=== PATIENT | female | born 1960 | race African-American/Black ===

== ENCOUNTER 2021-01-27 19:52 | Emergency (ER) | payer MEDICAID, OTHER ==
[~2021-01-27] VITALS: Ht 162.6 cm; Wt 87.0 kg
[~2021-01-27 19:52] MED LIST: ACYC800T5; HYDR-3512; PHEN32.46
[2021-01-27 19:59] VITALS: BP 122/80
[2021-01-27] MEDS ORDERED: KETOROLAC 60MG/2ML VIAL IM ONE (20:15)
[2021-01-27] MEDS ORDERED: DOCU-138 MT (20:16)
[2021-01-27] MEDS ORDERED: IBUP-2029 MT (20:16)
== END 2021-01-27 21:07 | disposition home or self-care (01) ==
LOC: ER 19:52
DX: M25.561 Pain in right knee (principal); K59.00 Constipation, unspecified
CPT/HCPCS: 96372; 99283; J1885